=== PATIENT | male | born 1990 | race Caucasian/White ===

== ENCOUNTER 2016-05-06 03:50 | Inpatient (IN) | payer OTHER ==
--- NOTE | ~2016-05-06 | DS ---
Unit #: [id number] #: [id number] Patient: SHAWN GUNDERSON [id number] [address] [place], [place] [address] [id number] MR#: [id number] NAME: SHAWN GUNDERSON ROOM: 39883 Age: 25 Sex: M Admission Date: 05/06/2016 : 1990 Discharge Date: Attending Physician: Brenda Harris M.D. Primary Care Physician: Primary Care Physician No DISCHARGE SUMMARY DIAGNOSES 1. Noncompliant. The patient left against medical advice at 10.37 a.m. this morning. 2. Likely aspiration pneumonia, was getting IV antibiotics. 3. Hypoxic respiratory failure, likely due to the aspiration pneumonia. 4. Heroin overdose. 5. History of hepatitis C. Human immunodeficiency virus was nonreactive when assessed during this admission. CONSULTANTS None. PROCEDURES None. DIAGNOSITC STUDIES IMAGING STUDIES: Consist of a chest x-ray with mild diffuse bilateral pulmonary infiltrates. LABORATORY STUDIES: Today, the patient had an ABG that revealed acute hypoxic respiratory failure with pCO2 of 46.9, CO2 of 51.7, saturation was 82.6. BMP, glucose 136, BUN 24, creatinine 1.3. Sodium 137, potassium 3.7, chloride 98, CO2 of 29, calcium 8.4, total protein 7.3, albumin 3.8, total bilirubin 1.0, AST 27, ALT 23, alkaline phosphatase 29. Alcohol was undetected. CBC with WBC of 9.9, RBC of 5.32, hemoglobin is 14.1, hematocrit is 43.1, MCV is 81.1, MCH is 26.4, MCHC is 32.5, RDW is 14.4, platelet is 225, MPV is 7.1. HOSPITAL COURSE The patient is 25-year-old male with past medical history of polysubstance abuse, hepatitis C, presented to the emergency department after he injected heroin at 2:30 a.m. in the morning and then became unconscious. EMS was called and found the patient unresponsive. The patient was given 2 mg of nasal Narcan and placed on oxygen for low oxygen saturation and was brought to the emergency department where he was still quite sedated and was given another 2 mg of Narcan IV. He was on 50% venturi mask oxygen, saturation was 96%. An ABG was done with the results as stated above. Chest x-ray shows mild diffuse bilateral pulmonary infiltrates. The patient was dyspneic and coughing, but still somnolent. In the emergency department, he was given saline and Levaquin as well as clindamycin. We were going to admit the patient for acute hypoxic respiratory failure following unconsciousness and treating for aspiration Unit #: [id number] #: [id number] Patient: JALYN,SHAWN pneumonia, but at this time at 10:41 a.m., the patient has left against medical advice. The patient's prognosis is poor given his young age and his continuing abuse of polysubstance as well as heroin and unwillingness to cooperate for medical needs. Dictated by... Yong Dias PA-C for Aida Durant/eriberto TD: 05/06/2016 15:54 JOB #: [id number] DISCHARGE SUMMARY Page 1 of 1 X X DISCHARGE SUMMARY
--- NOTE | ~2016-05-06 | HP ---
Unit #: [id number] #: [id number] Patient: SHAWN GUNDERSON [id number] [address] [address] [id number] I MR#: [id number] NAME: SHAWN GUNDERSON ROOM: 25195 Age: 25 Sex: M Admission Date: 05/06/2016 : 1990 Attending Physician: Brenda Harris M.D. Primary Care Physician: No Primary Care Physician HISTORY AND PHYSICAL CHIEF COMPLAINT Accidental heroin overdose with aspiration pneumonia and acute hypoxic respiratory failure. HISTORY This pleasant 25-year-old male with polysubstance abuse, hepatitis C, is admitted after an accidental overdose. The patient states that he injected heroin at 2:30 this morning, and then became unconscious. I am told that EMS was called and found the patient unresponsive. The patient was given 2 mg of nasal Narcan and placed on oxygen for low O2 sats. He was brought to this emergency department where he was still quite sedated, and given another 2 mg of Narcan IV. On 50% Ventimask his O2 sats are 96%. Chest x-ray shows mild diffuse bilateral pulmonary infiltrates. The patient feels a little bit short of breath, denies a cough but he is still a bit somnolent. Although he abuses heroin, he does not use heroin on a daily basis. He states that he last used heparin four days ago until early this morning. In the ER he was also given a liter of saline, 750 mg of Levaquin, 900 mg of clindamycin. PAST MEDICAL HISTORY 1. Polysubstance abuse. 2. Benzo withdrawal seizures. 3. Hepatitis C. ALLERGIES Ceclor, unknown reaction. HOME MEDICATIONS None. FAMILY HISTORY Difficult to obtain as patient is somnolent. SOCIAL HISTORY The patient lives with his mother. He smokes one pack per day of tobacco and does not drink alcohol. He has a history of polysubstance abuse but currently is using heroin but not on a daily basis. REVIEW OF SYSTEMS Difficult to obtain as patient is somnolent. PHYSICAL EXAMINATION GENERAL: Somnolent but arousable, thin, 25-year-old male who currently is Unit #: [id number] #: [id number] Patient: JALYN,SHAWN in no acute distress. VITAL SIGNS: Temperature not yet been obtained. Pulse 109, respirations 22, blood pressure 126/95, O2 saturation is 96% on a 50% Ventimask. HEENT: Eyes - PERRLA. Pharynx is benign. NECK: Supple without adenopathy or thyromegaly. CHEST: Does reveal crackles. CARDIAC: Normal S1 and S2 without S3, S4 or murmur. ABDOMEN: Bowel sounds are present. No hepatosplenomegaly, tenderness, or masses. EXTREMITIES: Without clubbing, cyanosis or edema. Pedal pulses are present. No splinter hemorrhages noted over the fingernail beds. NEUROLOGIC: Patient is somnolent but arousable. His cranial nerves are intact. He has equal strength throughout. DIAGNOSTIC STUDIES ADMISSION LABS: Hematocrit is 43.1, normal white count and platelet count. SMA 12 - glucose 136, BUN 24, chloride 98. ABG - pH 7.38, pCO2 47, pCO2 52, O2 saturation 82.6% on 15 L earlier. Again his O2 sats have improved. IMAGING STUDIES: Chest x-ray mild diffuse bilateral pulmonary infiltrates. CARDIOLOGY STUDIES: EKG - normal sinus rhythm rate 96, normal appearing. ASSESSMENT 1. Aspirin pneumonia with acute hypoxic respiratory failure. 2. Accidental heroin overdose. Again patient does not use on a daily basis. 3. Hepatitis C. PLANS 1. Clindamycin and Levaquin will be continued. Will also treat with albuterol. 2. IV fluids. 3. Check urine tox screen. 4. DVT prophylaxis. 5. HIV testing. Dictated by Aida Up/merna TD: 05/06/2016 07:57 JOB #: [id number] HISTORY AND PHYSICAL X Sheeba Rowe MD X HISTORY AND PHYSICAL
--- NOTE | ~2016-05-06 | EKG ---
PATIENT: SHAWN GUNDERSON UNIT #: [id number] Ventricular Rate: 96 BPM Atrial Rate: 96 BPM P-R Interval: 150 ms QRS Duration: 100 ms Q-T Interval: 370 ms QTC Calculation(Bezet): 467 ms P Cedar: 57 degrees Calculated R Cedar: 66 degrees Calculated T Cedar: 69 degrees Diagnosis Line: Normal sinus rhythm Diagnosis Line: Normal ECG Diagnosis Line: No previous ECGs available Diagnosis Line: Confirmed by GEORGE MEDELLIN MD ([id number]) on Diagnosis Line: 05/06/2016 8:04:01 AM INTERPRETING MD: VIGNESH PATRICIO
--- NOTE | ~2016-05-06 | CR72 ---
[facility] A Service of [facility] & [facility] RADIOLOGY TEXT RESULTS PATIENT: SHAWN GUNDERSON LOCATION: [facility] [address]10-12 : [birth year] UNIT #: [id number] AGE: [address]: Brenda Harris MD SEX: M ORDER DR: [id number] [facility] [address] [facility]. [place], [place] [address] [id number] I MR#: [id number] Acc #: [id number] NAME: SHAWN GUNDERSON : 1990 SEX: M STUDY DATE/TIME: 05/06/2016 3:36 UNIT: [facility] ROOM: [id number] STUDY DESCRIPTION: CR Chest Single View Portable Attending Physician: Brenda Harris M.D. Ordering Physician: Bossman Parra M.D. Primary Care Physician: No Primary Care Physician MEDICAL IMAGING REPORT This report is preliminary unless electronic signature is present EXAM AP portable chest, 05/06/2016. HISTORY A 25-year-old male in the ED with respiratory failure after reported heroin overdose. Shortness of air. TECHNIQUE AP portable chest x-ray. FINDINGS Mild diffuse interstitial pulmonary edema and/or infiltrate throughout both lungs. No dense airspace consolidation or visible pleural effusion. Heart size normal. IMPRESSION Mild diffuse interstitial pulmonary edema or infiltrate. Dictated by... Stefan Miranda M.D. THIS IS AN ELECTRONICALLY VERIFIED REPORT Stefan Miranda M.D. at 05/06/2016 9:58 PM IVONNE/zurdo TD: 05/06/2016 12:23 JOB #: [id number] MEDICAL IMAGING REPORT COPY
[2016-05-06 03:47] LABS: ARTERIAL BLD GAS O2 SATURATION 82.6 % (90.0-100.0); ARTERIAL BLOOD GAS CARBOXY HB 2.9 %sat (0.0-9.0); ARTERIAL BLOOD GAS HCO3 27.7 mmol/L; ARTERIAL BLOOD GAS MET HB 0.5 %sat (0.0-2.0); ARTERIAL BLOOD GAS PCO2 46.9 mmHg (35.0-45.0); ARTERIAL BLOOD GAS pH 7.379 (7.350-7.450)
[2016-05-06 03:48] LABS: ARTERIAL BLOOD GAS ALLEN TEST NORMAL; ARTERIAL BLOOD GAS ART SITE LEFT RADIAL; ARTERIAL BLOOD GAS DELIVERY VENTURI MASK; ARTERIAL BLOOD GAS PO2 51.7 mmHg (80.0-100); ARTERIAL DRAW? YES
[2016-05-06 04:27] LABS: BASOPHIL% 0.3 % (0-2.5); EOSINOPHIL# 0.1 X10e3 (0-0.7); EOSINOPHIL% 1.1 % (0.0-7.0); HEMATOCRIT 43.1 % (38.0-50.0); HEMOGLOBIN 14.1 gm/dL (13.0-16.0); LYMPHOCYTE# 1.7 X10e3 (1.0-3.5); LYMPHOCYTE% 17.4 % (17.0-45.0); MEAN CELL VOLUME 81.1 FL (83-96); MEAN CORPUSCULAR HEMOGLOBIN 26.4 PG (28-34); MEAN CORPUSCULAR HGB CONC 32.6 g/dL (30-36); MEAN PLATELET VOLUME 7.1 FL (6.5-11.5); MONOCYTE# 0.5 X10e3 (0-1.0); NEUTROPHIL# 7.6 X10e3 (1.5-7.1); NEUTROPHIL% 76.2 % (40-75); PLATELET COUNT 225 X10e3 (140-420); RED BLOOD COUNT 5.32 X10e (3.90-5.60); RED CELL DISTRIBUTION WIDTH 14.4 % (11.0-15.5); WHITE BLOOD COUNT 9.9 X10e3 (4.0-10.5)
[2016-05-06 04:28] LABS: DIFF IND NO
[2016-05-06 04:48] LABS: ALBUMIN SERUM 3.8 g/dL (3.5-5.0); ALCOHOL BLOOD <5 mg/dL (0); ALKALINE PHOSPHATASE 69 U/L (32-92); ALT (SGPT) 23 U/L (10-40); AST (SGOT) 27 U/L (10-42); BILIRUBIN, DIRECT 0.1 mg/dL (0.0-0.2); BILIRUBIN,INDIRECT 0.9 mg/dL (0.0-0.9); BLOOD UREA NITROGEN 24 mg/dL (9-23); BUN/CREATININE RATIO 18.46; CALCIUM SERUM 8.4 mg/dL (8.4-10.2); CARBON DIOXIDE 29 mmol/L (22-31); CHLORIDE 98 mmol/L (100-111); CREATININE SERUM 1.3 mg/dL (0.6-1.4); GLOM FILT RATE Estimated ABOVE60 mL/min (>60); GLUCOSE FASTING 136 mg/dL (70-110); POTASSIUM 3.7 mmol/L (3.5-5.1); PROTEIN TOTAL SERUM 7.3 g/dL (6.0-8.3); SODIUM 137 mmol/L (135-145)
== END 2016-05-06 10:35 | disposition left against medical advice (07) | DRG 917 ==
LOC: CED 03:50 → CEDOF 05:45
PROVIDERS: Emergency Medicine
DX: T40.1X1A Poisoning by heroin, accidental (unintentional), initial encounter (principal); J69.0 Pneumonitis due to inhalation of food and vomit; J96.01 Acute respiratory failure with hypoxia; F19.10 Other psychoactive substance abuse, uncomplicated; B19.20 Unspecified viral hepatitis C without hepatic coma; F17.210 Nicotine dependence, cigarettes, uncomplicated; Z91.19 Patient's noncompliance with other medical treatment and regimen
CPT/HCPCS: 36415; 36600; 71010; 80048; 80076; 82803; 85025; 87040; 87806; 93005; 94640; 96365; 96375; 99291; G0480; J1956; J2310; J2405

== ENCOUNTER 2016-07-08 18:48 | Inpatient (IN) | payer OTHER ==
--- NOTE | ~2016-07-08 | DS ---
Unit #: [id number] #: [id number] Patient: SHAWN GUNDERSON [id number] [address] [place], [place] [address] [id number] I MR#: [id number] NAME: SHAWN GUNDERSON ROOM: 462 Age: 26 Sex: M Admission Date: 07/08/2016 : 1990 Discharge Date: 07/10/2016 Attending Physician: Zhang Pan M.D. Primary Care Physician: No Primary Care Physician DISCHARGE SUMMARY HISTORY AND HOSPITAL COURSE Mr. Gunderson is an, otherwise, healthy 26-year-old gentleman, who presented to the emergency room at [facility] with right-sided abdominal pain, and right-sided flank tenderness. CT scan revealed inflammatory changes along the right colic gutter, but the appendix was not clearly inflamed. He was admitted to the hospital for observation, but because of progression of discomfort, he was taken to the operating room by Dr. Callejas, who did a diagnostic laparoscopy and laparoscopic appendectomy. According to the operative report, it appears as though the patient had a normal-appearing appendix, and the colon appeared normal, but there is some inflammatory changes along the right colic gutter. The patient underwent incidental appendectomy and was continued on antibiotics postoperatively. Today he is afebrile. His vital signs are stable. He is tolerating a diet. He says his discomfort is much improved and he has the expected skye-incisional tenderness. His white count is 8,200, hemoglobin stable at 12. He will be discharged home today with instructions to undergo diet and activity as tolerated. He may shower and change his bandage as needed. He is to follow up with Dr. Callejas in the office and patient was left the office number. [place] was left for postop incisional pain control. The patient understood these instructions and is to be discharged home in stable condition. Dictated by... Aida Sood/rohini TD: 07/10/2016 23:29 JOB #: [id number] DISCHARGE SUMMARY Page 1 of 1 X Zhang Pan MD DISCHARGE SUMMARY
--- NOTE | ~2016-07-08 | OR ---
Unit #: [id number] #: [id number] Patient: SHAWN GUNDERSON [id number] [address] [place], [place] [address] [id number] MR#: [id number] NAME: SHAWN GUNDERSON ROOM: 462 Date of Procedure: 07/09/2016 Admission Date: 07/08/2016 Surgeon: Earnest Callejas Jr., M.D. : 1990 Attending Physician: Zhang Pan M.D. Primary Care Physician: Primary Care Physician No OPERATIVE REPORT INDICATION FOR PROCEDURE The patient is a 26-year-old white male who was admitted complaining of right lower quadrant abdominal pain with associated nausea. CT scan revealed evidence of inflammation in the area of the cecum possibly on the basis of cecitis or possibly appendicitis, although his appendix was read as probably normal. He was brought to the operating room at this time for diagnostic laparoscopic examination with a laparoscopic appendectomy possible open. The patient understands the procedure including the risks and consents. PREOPERATIVE DIAGNOSES Possible acute appendicitis and possible right-sided colitis. POSTOPERATIVE DIAGNOSIS Questionable peritonitis in the area of the gutter, the colon on the right with no obvious inflammation of the colon externally and normal appearing elongated appendix. ANESTHESIA General with endotracheal intubation, 0.5% Marcaine with epinephrine locally. PROCEDURES PERFORMED Diagnostic laparoscopy with laparoscopic appendectomy. DESCRIPTION OF PROCEDURE The patient was positioned in supine position. After being anesthetized and intubated, he was prepped and draped in routine fashion for diagnostic laparoscopy and laparoscopic appendectomy. A small infraumbilical incision was made approximately 1 cm in length. This was carried down to the fascia. The fascia and umbilicus were lifted with a towel clip, and a Veress needle introduced into the abdomen. The abdomen was then inflated with CO2 gas. A 5-mm port was introduced into the abdomen followed by the camera. There was no evidence of any injury related to introduction of the port or the Veress needle. Brief intra-abdominal exploration was carried out. There were some inflammatory changes in the anterior abdominal wall on the right near the gutter between the colon in the abdominal wall. The appendix was elongated, but did not appear significantly inflamed. The colon itself did not appear significantly inflamed. Additional 5-mm port was placed intermediate between the umbilicus and suprapubic area, and a 12-mm port just to the right of the upper midline. The appendix was mobilized. A window created at the base using Unit #: [id number] #: [id number] Patient: SHAWN GUNDERSON the 3.5 mm stapler was stapled and transected, and using a vascular load, the mesoappendix was stapled and transected with the stapler. There was no evidence of any bleeding from either staple line. The appendix was placed in EndoCatch bag and brought out through the larger port site and the port replaced. The right lower quadrant was checked. There was no evidence of any bleeding. After watching this area for approximately 5 minutes, the CO2 was then allowed to escape from the abdomen and the ports removed. The fascia in the larger port site was approximated with the neoClose technique prior to removal of the ports. The wounds were irrigated and after hemostasis was achieved with Bovie cautery, they were injected with 0.5% Marcaine with epinephrine locally and the skin edges were approximated with stainless-steel skin clips and skin stapling device. Sterile dressings were applied externally. Estimated blood loss was minimal, less than 30 mL. The patient received less than 1000 mL crystalloid solution during the procedure. Sponges and instruments counts were correct x3. No drains were used. No complications. The patient was taken to the recovery room with stable vital signs in satisfactory condition. Dictated by... Earnest Callejas Jr. MJonah ALVAREZ/eriberto TD: 07/18/2016 23:15 JOB #: [id number] OPERATIVE REPORT Page 1 of 1 X Earnest Callejas MD X PROCEDURE OPERATIVE NOTE
--- NOTE | ~2016-07-08 | HP ---
Unit #: [id number] #: [id number] Patient: SHAWN GUNDERSON [id number] [address] [address] [id number] I MR#: [id number] NAME: SHAWN GUNDERSON ROOM: 462 Age: 26 Sex: M Admission Date: 07/08/2016 : 1990 Attending Physician: Zhang Pan M.D. Primary Care Physician: No Primary Care Physician HISTORY AND PHYSICAL CHIEF COMPLAINT Periumbilical abdominal pain. PRESENT ILLNESS Patient is a 26-year-old, white male who was in normal good health up until approximately 24-36 hours ago when he developed some abdominal pain along with some nausea. He did have a couple of episodes of vomiting without hematemesis. He has had no fever, no chills, no urinary tract symptoms and denies any denies any recent URI. The patient is presently hungry and states that he has had some occasional pain similar to this in the past. He went to the emergency room at [facility] and had a workup. His white blood cell count 10,000. CT revealed question of some right-sided colitis, especially in the area of the cecum. The appendix did not appear inflamed, but did have some fluid within it. PAST MEDICAL HISTORY SERIOUS ILLNESSES: He has a history of hepatitis C secondary to taking drugs and he has been a drug abuser in the past. He also continues to smoke marijuana. SURGERY IN THE PAST None. MEDICATIONS None chronically. ALLERGIES None known. TRANSFUSIONS None in the past. FAMILY HISTORY Noncontributory according to the patient. SOCIAL HISTORY The patient is single. He does work and does catering. He smokes approximately a pack of cigarettes per day. He is an occasional drinker. IMMUNIZATIONS Up to date. REVIEW OF SYSTEMS Twelve-system review has been performed, which is non-remarkable except Unit #: [id number] #: [id number] Patient: SHAWN GUNDERSON for that noted in the present illness. PHYSICAL EXAMINATION VITAL SIGNS: The patient is afebrile. Vital signs are normal. HEENT: Non-remarkable. NECK: Supple. CHEST: There is equal bilateral expansion with bilateral equal breath sounds. LUNGS: Clear bilaterally. HEART: Regular rhythm without murmurs or gallops. There is no evidence of cardiomegaly clinically. ABDOMEN: Soft and moderately tender in the periumbilical area as well as the right side of the abdomen. There moderate right CVA tenderness. There is no rebound, but some slight guarding. No evidence of ascites or hernias. EXTREMITIES: Full range of motion without limitation. There is no evidence of peripheral edema. BACK: There is no CVA tenderness. NEUROLOGICAL: Grossly intact. IMPRESSION Patient has abdominal pain, possibly some colitis or this could possibly be early appendicitis. The plan will be to keep him NPO and start him on some IV antibiotics and reevaluate him later today. Dictated by Earnest Callejas Jr., MSebastian. ANTONIO/keren TD: 07/09/2016 07:33 JOB #: [id number] HISTORY AND PHYSICAL Page 1 of 1 X Earnest Callejas MD X HISTORY AND PHYSICAL
[2016-07-09 03:33] LABS: BASOPHIL% 0.2 % (0-2.5); DIFF IND NO; EOSINOPHIL% 0.3 % (0.0-7.0); HEMATOCRIT 37.8 % (38.0-50.0); HEMOGLOBIN 12.4 gm/dL (13.0-16.0); LYMPHOCYTE# 1.6 X10e3 (1.0-3.5); LYMPHOCYTE% 17.2 % (17.0-45.0); MEAN CELL VOLUME 81.3 FL (83-96); MEAN CORPUSCULAR HEMOGLOBIN 26.7 PG (28-34); MEAN CORPUSCULAR HGB CONC 32.8 g/dL (30-36); MEAN PLATELET VOLUME 7.4 FL (6.5-11.5); MONOCYTE# 0.6 X10e3 (0-1.0); MONOCYTE% 6.7 % (3.0-12.0); NEUTROPHIL% 75.6 % (40-75); PLATELET COUNT 187 X10e3 (140-420); RED BLOOD COUNT 4.65 X10e (3.90-5.60); RED CELL DISTRIBUTION WIDTH 14.1 % (11.0-15.5); WHITE BLOOD COUNT 9.3 X10e3 (4.0-10.5)
[2016-07-10 03:12] LABS: HEMATOCRIT 36.4 % (38.0-50.0); MEAN CELL VOLUME 81.3 FL (83-96); MEAN CORPUSCULAR HEMOGLOBIN 26.7 PG (28-34); MEAN CORPUSCULAR HGB CONC 32.9 g/dL (30-36); MEAN PLATELET VOLUME 7.2 FL (6.5-11.5); RED BLOOD COUNT 4.48 X10e (3.90-5.60); RED CELL DISTRIBUTION WIDTH 13.9 % (11.0-15.5); WHITE BLOOD COUNT 8.2 X10e3 (4.0-10.5)
[2016-07-10] MEDS ORDERED: PERCOCET 7.5-31 EACH PO (07:36)
[2016-07-10] MEDS ORDERED: ACETAMINOPHEN650 M1 PO (07:37)
== END 2016-07-10 09:58 | disposition home or self-care (01) | DRG 343 ==
LOC: C4C 18:48 → C3B MEDSUR 18:48 → C4C 21:50
PROVIDERS: Specialist; Surgery
PROC: 0DTJ4ZZ Resection of Appendix, Percutaneous Endoscopic Approach (ICD-10-PCS; principal; 2016-07-09 16:30)
DX: K65.9 Peritonitis, unspecified (principal); F17.210 Nicotine dependence, cigarettes, uncomplicated; R10.33 Periumbilical pain; F12.10 Cannabis abuse, uncomplicated; Z86.19 Personal history of other infectious and parasitic diseases
CPT/HCPCS: 85025; 85027; 88304; C9113; J0330; J1100; J1170; J1650; J1956; J2250; J2270; J2405; J2543; J2710; J3010